=== PATIENT | male | born 1995 | race Caucasian/White ===

== ENCOUNTER → 2017-03-31 14:27 | Outpatient (CLI) | payer OTHER, SELFPAY ==
[2017-04-02 16:08] LABS: Endomysial Antibody IgA Negative (Negative)
[2017-04-04 08:46] LABS: Immunoglobulin A 174 mg/dL (90-386); t-Transglutaminase IgA <2 U/mL (0-3)
== END ==
PROVIDERS: Family Provider Nurse Practitioner Family; PCP Nurse Practitioner Family; Visit Provider Internal Medicine Gastroenterology
DX: R10.9 Unspecified abdominal pain (principal)
CPT/HCPCS: 36415; 82784; 83516; 86255